=== PATIENT | male | born 1945 | race Caucasian/White ===

== ENCOUNTER 2022-03-19 14:20 | Observation (INO) | payer MEDICARE, SELFPAY ==
[2022-03-19] VITALS (19 sets, daily range): BP systolic 138–211; BP diastolic 60–126; PULSE 80–98; RESP 16–20; TEMP 36.3–36.6; O2SAT 95–99; BMI 36.1; BMI 30.7
--- NOTE | 2022-03-19 15:11 | XR_ITS ---
FINAL REPORT CLINICAL HISTORY: weak, near syncope FINDINGS: SINGLE-VIEW CHEST There is mild cardiomegaly.. The mediastinum is normal. There are mild left base opacities, favor atelectasis over pneumonia. There is no pneumothorax. IMPRESSION: Left base opacities, favor atelectasis over pneumonia. Reviewed, Interpreted and Dictated by Josue Perez III, MD Transcribed by Christin Palafox Authenticated and [facility]
--- NOTE | 2022-03-19 15:11 | CT_ITS ---
FINAL REPORT CLINICAL HISTORY: weakness, h/o 3 strokes FINDINGS: Axial images of the head were obtained without contrast. Coronal reformatted images were also obtained. This study was performed with techniques to keep radiation doses as low as reasonably achievable (ALARA). Individualized dose reduction techniques using automated exposure control or adjustment of mA and/or kV according to the patient's size were employed. There is generalized age-appropriate atrophy. Periventricular low-attenuation areas are seen consistent with mild chronic ischemic changes. There is no evidence of intracranial hemorrhage or mass. There is no evidence of acute infarct. There is no evidence of shift of the midline structures. No skull abnormality is seen on the bone window images. IMPRESSION: Atrophy and mild periventricular chronic ischemic changes. No acute intracranial abnormality identified. Reviewed, Interpreted and Dictated by Josue Perez III, MD Transcribed by Christin Palafox Authenticated and [facility]
--- NOTE | 2022-03-19 15:17 | HMH.EDGENADL ---
Discharge Plan Disposition Patient Disposition: Still a Patient Condition: Fair Clinical Impressions Clinical Impression: Near syncope, Generalized weakness, Anemia, Creatinine elevation, Leukocytosis Discharge ED Provider: Eliseo Albarran General Adult HPI <Eliseo Albarran MD - Last Filed: 03/19/22 19:56> General Chief complaint: Fall Stated complaint: fall Time Seen by Provider: 03/19/22 15:03 Mode of Arrival: EMS Source of Information: Patient Limitations: No Limitations Description of Symptoms (Recalled from ER Triage Doc. by RN): Patient reports he fell out of the chair. Denies any pain or hitting his head. Patient denies any loss of conciousness. Patient reports generalized weakness. History of Present Illness HPI narrative: Patient is brought in by ambulance. History obtained from patient and friend. He was sitting on a bench, felt presyncopal and weak and fell off of the bench. He did not injure himself. The bench was just 6 inches high. His friend states that he did not go completely unconscious, but came close. Patient remembers feeling very weak and feeling like he was going to pass out. States that he feels much better now. Currently he denies any new numbness or weakness. He is starting to get a little bit of a headache. He is not having problems with speech. He says he is not having visual problems but his friend says that when the episode happened the patient was not able to make him out visually. He states he has a history of 3 previous strokes, the last was several years ago, says his strokes have been brainstem. He has residual right-sided numbness. He is able to walk independently and drives. He is diabetic. He reports blood sugar during transport was 150s. He is on aspirin and Plavix, no other blood thinners. No chest pain or shortness of breath. Denies recent illness such as cough, fever, vomiting, diarrhea. Related Data Allergies Allergy/AdvReac Type Severity Reaction Status Date / Time No Known Allergies Allergy Verified 03/19/22 14:36 PFSH <Eliseo Albarran MD - Last Filed: 03/19/22 19:56> COUNTS INCLUDE 234 BEDS AT THE [facility] Medical History (Updated 03/19/22 @ 23:07 by Saulo Humphries DNP) Cervical spine disease Cholecystectomy planned CVA (cerebral vascular accident) Diabetes Hyperlipidemia Hypertension Surgical History (Updated 03/19/22 @ 23:05 by Saulo Humphries DNP) History of appendectomy Family History (Updated 03/19/22 @ 23:05 by Saulo Humphries DNP) Other Stroke Social History (Updated 03/19/22 @ 23:13 by Saulo Humphries DNP) Smoking Status: Never smoker alcohol intake: never current occupational status: unemployed Travel in the last 8 weeks: None <Eliseo Albarran MD - Last Filed: 03/19/22 19:56> ROS Obtained: Yes All systems reviewed & no additional complaints except as documented Constitutional Constitutional: Denies fever(s), Reports headache(s) and Reports weakness Eyes Eyes: Reports as per HPI ENT Ears, Nose, Mouth, and Throat: Reports headache(s), Denies nasal discharge and Denies sore throat Cardiovascular Cardiovascular: Denies chest pain and Reports syncope (Near syncope) Respiratory Respiratory: Denies shortness of breath and Denies cough Gastrointestinal Gastrointestingal: Denies abdominal pain, constipation, diarrhea or vomiting Genitourinary Male Genitourinary: Denies difficulty urinating and Denies flank pain Musculoskeletal Musculoskeletal: Reports numbness (Chronic right-sided numbness) Neurologic Neurologic: Denies abnormal speech, Denies focal weakness, Reports headache(s), Reports numbness (Chronic right-sided numbness), Reports syncope (Near syncope) and Reports weakness Physical Exam <Eliseo Albarran MD - Last Filed: 03/19/22 19:56> General General appearance: alert and in no apparent distress Head Head exam: atraumatic and normocephalic Eye Eye exam: Present normal appearance and EOMI ENT ENT exam: Present mucous membranes moist Neck Neck exam
--- NOTE | 2022-03-19 15:24 | ECG_ITS ---
APPROVED REPORT Exam: Resting ECG HR:85 bpm ECG Measurements Heart Rate 85 AXES TX 216 P 71 QRSd 77 QRS 65 QT 366 T 77 QTc 408 Conclusion SINUS RHYTHM WITH FIRST DEGREE AV BLOCK LOW QRS VOLTAGE IN PRECORDIAL LEADS [QRS DEFLECTION < 1.0 mV IN CHEST LEADS] ABNORMAL ECG UNCONFIRMED REPORT Electronically signed by : Deonte Cornell MD 03/20/2022 13:28:25
[2022-03-19 16:06] LABS: Basophils # 0.1 K/mm3 (0-0.2); Basophils % 0.6 % (0.1-2.0); Eosinophils # 0.2 K/mm3 (0.0-0.4); Eosinophils % 1.2 % (0.1-12.0); Hematocrit 29.6 % (42.0-52.0); Hemoglobin 9.2 g/dL (14.1-18.0); Lymphocytes # 2.8 K/mm3 (0.7-4.5); Lymphocytes % 20.9 % (10-50); Mean Corpuscular HGB Conc 31.2 g/dL (31.8-35.4); Mean Corpuscular Hemoglobin 24.6 pg (27.0-31.2); Mean Platelet Volume 8.3 fl (7.4-10.4); Monocytes # 0.7 K/mm3 (0.1-1.0); Monocytes % 5.4 % (1.7-9.3); Neutrophils # 9.6 K/mm3 (1.8-7.8); Neutrophils % 71.9 % (37.0-80.0); Platelet Count 456 K/mm3 (142-424); Red Blood Count 3.75 M/mm3 (4.60-6.20); Red Cell Distribution Width 15.7 % (11.5-17.5); White Blood Count 13.3 K/mm3 (4.8-10.8)
[2022-03-19 16:17] LABS: Chloride 109 mmol/L (98-107); Sodium 141 mmol/L (136-145)
[2022-03-19 16:18] LABS: Coronavirus 19, PCR Not Detected (NotDetected); Influenza A, PCR Not Detected (NotDetected); Influenza B, PCR Not Detected (NotDetected)
[2022-03-19 16:19] LABS: Blood Urea Nitrogen 29 mg/dl (9-20); Creatinine Clearance Estimated 49 mL/min (50-200); Estimated Glomerular Filt Rate 33 ml/min (>60); GFR (African American) 39 ML/MIN (>60)
[2022-03-19 16:20] LABS: Alanine Aminotransferase 30 U/L (12-78); Albumin Level 3.6 g/dl (3.5-5.0); Albumin/Globulin Ratio 1.2 (1.1-1.8); Alkaline Phosphatase 77 U/L (38-126); Aspartate Amino Transferase 46 U/L (17-59); Bilirubin,Total 0.3 mg/dl (0.2-1.3); Calcium 9.1 mg/dl (8.4-10.2); Carbon Dioxide 25 mmol/L (22.0-30.0); Glucose 148 mg/dl (74-100); Total Protein,Serum 6.6 g/dl (6.3-8.2)
[2022-03-19 16:34] LABS: Troponin I < 0.01 ng/ml (0.00-0.034)
[2022-03-19 16:55] LABS: Occult Blood,Stool Negative (Negative)
[2022-03-19 17:49] LABS: Microscopic, Urine URINE MICROSCOPIC (MICROSCOPIC)
--- NOTE | 2022-03-19 17:53 | PC.NURSE ---
[facility], waiting for hospitalist to call back.
[2022-03-19 17:57] LABS: Appearance,Urine CLEAR (Clear); Bilirubin,Urine Negative (Negative); Blood, Urine Negative (Negative); Color,Urine YELLOW (Yellow); Glucose,Urine (UA) Negative (Negative); Ketones,Urine Negative (Negative); Leukocyte Esterase,Urine Negative (Negative); Nitrate,Urine Negative (Negative); Protein,Urine TRACE (Negative); Specific Gravity, Urine >= 1.030 (1.005-1.030); Urobilinogen,Urine 0.2 EU/dl (0.2)
[2022-03-19 18:11] LABS: Bacteria,Urine 2+ /lpf
--- NOTE | 2022-03-19 18:53 | PC.NURSE ---
Called [facility] again about hospitalist calling, she advised he was going to call as soon as he could, that he was real busy.
[2022-03-19 19:32] LABS: Troponin I 0.02 ng/ml (0.00-0.034)
--- NOTE | 2022-03-19 19:53 | PC.NURSE ---
Rechecked pt condition. No needs or complaints voiced at this time.
--- NOTE | 2022-03-19 20:29 | PC.NURSE ---
Called [facility] back. They advised that Dr. Martinez was aware that he needed to call us back and that he was still busy. They also advised that had no beds available, and there are 7 people on the wait list ahead of him.
--- NOTE | 2022-03-19 20:31 | PC.NURSE ---
Dr. Mercedes at speaking with pt/family at this time.
[2022-03-19 20:43] LABS: POC Glucose,Bedside 110 (70-110)
--- NOTE | 2022-03-19 20:48 | PC.NURSE ---
Dr. Mercedes speaking with Dr. Fabian at [facility]
--- NOTE | 2022-03-19 20:56 | CT_ITS ---
PROCEDURE INFORMATION: Exam: CTA Neck With Contrast Exam date and time: 03/19/2022 9:03 PM Age: 76 years old Clinical indication: Other: R/O stroke TECHNIQUE: Imaging protocol: Computed tomographic angiography of the neck with contrast. 3D rendering (Not supervised by radiologist): MIP and/or 3D reconstructed images were created by the technologist. Radiation optimization: All CT scans at this facility use at least one of these dose optimization techniques: automated exposure control; mA and/or kV adjustment per patient size (includes targeted exams where dose is matched to clinical indication); or iterative reconstruction. Contrast material: ISOVUE; Contrast volume: 100 ml; Contrast route: INTRAVENOUS (IV); COMPARISON: CT HEAD/BRAIN WO CON 03/19/2022 3:24 PM FINDINGS: Right common carotid artery: Atherosclerosis and mild stenosis of the distal right common carotid artery. Right internal carotid artery: Approximately 50% stenosis of the proximal right internal carotid artery, with atherosclerosis and noncalcified plaque. Right external carotid artery: Mild stenosis of the proximal right external carotid artery. Atherosclerosis. Left common carotid artery: No significant stenosis. No dissection or occlusion. Left internal carotid artery: Less than 50% stenoses of the proximal and distal left internal carotid artery. Atherosclerosis. Left external carotid artery: No occlusion or significant stenosis. Right vertebral artery: Mild hypoplasia of the right vertebral artery, without extracranial occlusion. Left vertebral artery: A dominant left vertebral artery is visualized. Mild decreased enhancement/flow is seen within the V1 segment of the left vertebral artery, although this can be contributed by artifact. Right subclavian artery: Artifact limits evaluation of the right subclavian artery. Mild stenosis of the proximal right subclavian artery. Atherosclerosis. Left subclavian artery: Mild stenosis of the left subclavian artery. Aorta: Atherosclerosis of the aortic arch. Artifact limits evaluation of the ascending aorta. Pharynx: Effacement of the right pyriform sinus. Soft tissues: No significant soft tissue swelling. Bones/joints: Straightening of the lordotic curvature of the cervical spine. Degenerative changes are identified involving the cervical and upper thoracic spine. Varying degrees of spinal canal stenosis and neural foraminal narrowing at multiple cervical levels. Moderate to severe spinal canal stenosis at C3-C4. Lungs: Mild dependent atelectatic change within the lungs. IMPRESSION: 1. Mild stenosis of the distal right common carotid artery. 2. Approximately 50% stenosis of the proximal right internal carotid artery. 3. Mild stenosis of the proximal right external carotid artery. 4. Less than 50% stenoses of the proximal and distal left internal carotid artery. 5. Mild bilateral subclavian artery stenoses. 6. A dominant left vertebral artery is visualized. Mild decreased enhancement/flow is seen within the V1 segment of the left vertebral artery, although this can be contributed by artifact. 7. Degenerative changes are identified involving the cervical and upper thoracic spine. Varying degrees of spinal canal stenosis and neural foraminal narrowing at multiple cervical levels. Moderate to severe spinal canal stenosis at C3-C4. These findings can be further evaluated with a cervical MRI. 8. Additional findings described above. REFERENCES: NASCET CRITERIA. The degree of stenosis in the cervical segment of the internal carotid artery is based on NASCET criteria. Normal is no stenosis. Mild is less than 50% s
--- NOTE | 2022-03-19 20:56 | CT_ITS ---
PROCEDURE INFORMATION: Exam: CTA Head With Contrast, Arteriography Exam date and time: 03/19/2022 9:03 PM Age: 76 years old Clinical indication: Stroke-like symptoms; RT upper extremity weakness; Additional info: R/O stroke TECHNIQUE: Imaging protocol: Computed tomographic angiography of the head with contrast. Exam focused on the arteries. 3D rendering (Not supervised by radiologist): MIP and/or 3D reconstructed images were created by the technologist. Radiation optimization: All CT scans at this facility use at least one of these dose optimization techniques: automated exposure control; mA and/or kV adjustment per patient size (includes targeted exams where dose is matched to clinical indication); or iterative reconstruction. Contrast material: ISOVUE; Contrast volume: 100 ml; Contrast route: INTRAVENOUS (IV); COMPARISON: CT HEAD/BRAIN WO CON 03/19/2022 3:24 PM FINDINGS: ANTERIOR CIRCULATION: Right internal carotid artery: Atherosclerosis of the right internal carotid artery, with mild stenoses. No aneurysm. Right middle cerebral artery: No occlusion or significant stenosis. No aneurysm. Right anterior cerebral artery: Stenosis of the A1 segment of the right MICA proximally. No aneurysm. Left internal carotid artery: Atherosclerosis of the left internal carotid artery, with mild and moderate stenoses. No aneurysm. Left middle cerebral artery: No occlusion or significant stenosis. No aneurysm. Left anterior cerebral artery: Stenosis of the A1 segment of the left anterior cerebral artery proximally. No aneurysm. 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 Left vertebral artery: Mild stenosis of the V4 segment the left vertebral artery. A dominant left vertebral artery is identified. Atherosclerosis. Basilar artery: No occlusion or significant stenosis. No aneurysm. Right posterior cerebral artery: The right [employer] TECH[employer]ICIAN is small in caliber, with stenoses up to severe in degree. No aneurysm. Left posterior cerebral artery: Stenoses are visualized of the left [employer] SC[employer] TECHNICIAN, which are up to severe in degree. The left [employer] TECHNICIAN is small in caliber. No aneurysm. Brain: No definite mass, mass effect, or midline shift. Refer to the head CT report from the same day. Cerebral ventricles: There is mild prominence of the ventricles and sulci, compatible with atrophy. Orbital cavities: Bilateral orbital lens implants. Bones/joints: Hyperostosis frontalis interna. Soft tissues: Unremarkable. IMPRESSION: 1. No large vessel arterial occlusion on this CTA head. 2. 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 3. Mild stenosis of the V4 segment the left vertebral artery. A dominant left vertebral artery is identified. 4. Stenoses are visualized of the left [employer] SC[employer] TECHNICIAN, which are up to severe in degree. The left [employer] SC[employer] TECHNICIAN is small in caliber. 5. The right [employer] TECHNICIAN is small in caliber, with stenoses up to severe in degree. 6. Bilateral MICA stenoses. 7. Atherosclerosis of the internal carotid arteries, with stenoses bilaterally. 8. Additional findings described above.
--- NOTE | 2022-03-19 21:08 | PC.NURSE ---
Pt gone to RAD for CT
--- NOTE | 2022-03-19 21:17 | PC.NURSE ---
pt returned from ct
--- NOTE | 2022-03-19 21:30 | PC.NURSE ---
Repeat trop drawn and sent to lab
--- NOTE | 2022-03-19 21:43 | PC.NURSE ---
Dr. Mercedes speaking with Dr. Fabian at [facility]
[2022-03-19 22:10] LABS: Troponin I < 0.01 ng/ml (0.00-0.034)
--- NOTE | 2022-03-19 22:26 | PC.NURSE ---
Dr. Mercedes updated pt/family of plans to admit
--- NOTE | 2022-03-19 22:29 | PC.NURSE ---
Family Friend, Mihai, sherry contact number [phone]
--- NOTE | 2022-03-19 22:40 | PC.NURSE ---
Pt given urinal
--- NOTE | 2022-03-19 22:48 | PC.NURSE ---
[facility]EREAL DISEASE CONTROL HEAD speaking with pt at this time
--- NOTE | 2022-03-19 22:56 | EXP.HP ---
History of Present Illness *Admission Date: 03/19/22 *Reason for visit:: Near Syncope *History of present illness: Mr. Valadez is a 76-year-old male with a past medical history that is positive for history of CVA, DM, HTN, HL. He presents to [facility] due to a near-syncopal episode that occurred earlier in the day. He reports that he was on a bench with a friend when he started feeling dizzing and feeling like he was going to pass out. He denies losing consciousness. He was brought into the ER for evaluation. In the ER, the patient had a CT of the head without contrast that showed no acute intracranial abnormalities. 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 He underwent a CT Angiogram of the neck that showed 50% stenosis of the proximatl right internal carotid artery and less than 50% stenosis of the proximal and distal left internal carotid artery. The ER Physcian spoke with [facility] and they recommended obtaining an MRI of the head and risk stratification, but no need for transfer. [facility] was also contacted, but there was no bed available at the facility. Also important to note is the patient has a creatinine at 2.00. He denies a history of CKD. K was at 5.0. In the ER he received fluids. The patient will be admitted with initial impression: Near Syncope. Further diagnostics will be obtained. The plan of care was discussed with the patient in length and detail at bedside in the ER prior to admission. The patient verbalized understanding and agreement with the plan of care. [facility] Medical History (Updated 03/20/22 @ 14:01 by Harrison Mandujano MD) Appendicitis Cervical spine disease Cholecystectomy planned CVA (cerebral vascular accident) Degenerative disc disease Diabetes Diabetes mellitus, type 2 History of cataract Hyperlipidemia Hypertension Pneumonia Surgical History H/O neck surgery H/O rotator cuff surgery History of appendectomy Previous back surgery Family History (Updated 03/20/22 @ 01:53 by Isabella See RN) Family history of hypertension Family history of myocardial infarction Stroke Social History (Updated 03/20/22 @ 01:54 by Isabella See RN) Smoking Status: Never smoker alcohol intake: never current occupational status: unemployed Travel in the last 8 weeks: None Review of Systems Review of Systems Review of systems:: pertinent systems reviewed and negative unless documented below Constitutional Constitutional: Reports headache(s) and Reports weakness Eyes Eyes: Reports system reviewed and no additional complaints, except as documented ENT Ears, Nose, Mouth, and Throat: Reports system reviewed and no additional complaints, except as documented and Reports headache(s) *Cardiovascular Cardiovascular: Reports system reviewed and no additional complaints, except as documented and Reports syncope (Near syncope) *Respiratory Respiratory: Reports system reviewed and no additional complaints, except as documented *Gastrointestinal Gastrointestinal: Reports system reviewed and no additional complaints, except as documented *Genitourinary Genitourinary: Reports system reviewed and no additional complaints, except as documented *Musculoskeletal Musculoskeletal: Reports system reviewed and no additional complaints, except as documented and Reports numbness (Chronic right-sided numbness) Integumentary/Breasts Skin/Breast: Reports system reviewed and no additional complaints, except as documented *Neurologic Neurologic: Reports headache(s), Reports numbness (Chronic right-sided numbness), Reports syncope (Near syncope) and Reports weakness Psychiatric Psychiatric: Reports system reviewed and no additional complaints, except as documented Endocrine Endocrine: Reports system reviewed and no additional complaints, except as documented Hematolo
[2022-03-19 23:13] LABS: Creatinine,Urine Random 205 mg/dL (Not Estab.)
[2022-03-20] VITALS: BP 160/91; PULSE 80; PULSE 89; RESP 20; TEMP 36.6; O2SAT 97
--- NOTE | 2022-03-20 00:16 | PC.NURSE ---
PT ARRIVED TO FLOOR VIA STRETCHER @ [id number].
--- NOTE | 2022-03-20 01:45 | PC.NURSE ---
Received report from Kelly See RN
[2022-03-20 04:00] VITALS: BP 142/75; PULSE 80; PULSE 85; RESP 18; TEMP 36.6; O2SAT 94
[2022-03-20 04:29] VITALS: BMI 30.7
--- NOTE | 2022-03-20 05:31 | PC.NURSE ---
MARTINEZ CALLED FROM [facility], NO BED AVAILABLE AT THIS TIME, STILL ON THE WAITING LIST.
--- NOTE | 2022-03-20 05:33 | PC.NURSE ---
Pt has rested intermittently since this RN assumed care. He reports it's hard to sleep in a hospital . Has no complaints other than reports of weakness. States he does not feel like he could get up out of the bed without significant assistance. Denies soa or cp. LS cta. Remains on room air. NSR on telemetry. No acute distress noted, will continue to monitor.
[2022-03-20 06:56] LABS: POC Glucose,Bedside 119 (70-110)
--- NOTE | 2022-03-20 07:15 | PC.NURSE ---
PT here to evaluate patient
--- NOTE | 2022-03-20 07:30 | HMH.PTEV ---
Physical Therapy Evaluation Rehab PT IP Evaluation Start: 03/19/22 23:14 Freq: ONCE Status: Active Protocol: Document 03/20/22 07:23 YAZAN (Rec: 03/20/22 07:29 YAZAN [id number]) Subjective/History History History This is the initial IP PT evaluation for Geoff Valadez . Pt is a 76 y/o male admitted to [facility] for TIA. 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 Pt reports all of a sudden he felt severely dizzy and almost passed out . Pt reports no LOC Subjective Subjective Pt reports he feels weak in my legs - pt also reports he is in the process of getting an electric scooter from medicare Rehab PT IP Eval Objective Appearance Patient Behavior Appropriate,Aggressive Patient Orientation Place,Name,Birthday,Year, Situation Difficulty following instructions none Speech Pattern Appropriate Ambulation Patient Able to Ambulate Yes Ambulation Observation IP General Gait Pattern Observation Wide Based Gait,Ataxic Gait, Decrease Stride Lngth (R), Decrease Stride Lngth (L) Ambulation Distance (feet) 30 Ambulation Assistive Device None Ambulation Ability Contact Guard/Hand Hold Balance Ability to Arise Able, uses arms to help Sitting Balance Steady, safe Standing Balance Steady, wide stance Dynamic Sitting Balance Ability Good Dynamic Standing Balance Ability Poor Transfers Bed Transfer Ability Independent Chair Transfer Ability Independent Sit to Stand Bed Transfer Ability Contact Guard/Hand Hold Sit to Stand Chair Transfer Ability Contact Guard/Hand Hold Rehab PT IP prob,goals,plan Problems Date of Evaluation: 03/20/22 PT IP Problems Transfers,Gait,Balance,Self care,Safety Rehab Potential Rehab Potential Fair Equipment Needs Assistive Devices None / NA,Straight Cane, Rolling / Wheeled Walker Plan PT Intervention Plan Transfers,Gait,Balance,Self care,Safety,Therapeutic Exercise PT Plan Frequency BID Duration
--- NOTE | 2022-03-20 07:48 | HMH.PHAINT1 ---
Pharmacy Intervention Comments: MEDICATION RECONCILIATION COMPLETED ON PATIENT USING EXTERNAL FILL HISTORY FROM PHARMACY. -HELIO CHOUDHURY, CAROLINED
[2022-03-20 07:49] LABS: Chol/HDL Ratio 6.1 (1-3.5); Cholesterol 129 mg/dl (140-200); HDL Cholesterol 21 mg/dl (40-60); Triglycerides 168 mg/dl (30-150); VLDL Cholesterol 34 mg/dL (0-40)
[2022-03-20 08:00] VITALS: BP 160/74; PULSE 89; RESP 20; TEMP 36.4; O2SAT 96
[2022-03-20 08:00] LABS: Direct LDL Cholesterol 71.66 mg/dL (100-129)
[2022-03-20 09:21] LABS: Basophils # 0.1 K/mm3 (0-0.2); Basophils % 0.8 % (0.1-2.0); Eosinophils # 0.3 K/mm3 (0.0-0.4); Eosinophils % 3.3 % (0.1-12.0); Hematocrit 27.3 % (42.0-52.0); Hemoglobin 8.6 g/dL (14.1-18.0); Lymphocytes % 32.8 % (10-50); Mean Corpuscular HGB Conc 31.6 g/dL (31.8-35.4); Mean Corpuscular Hemoglobin 24.8 pg (27.0-31.2); Mean Corpuscular Volume 78.4 fl (80-94); Mean Platelet Volume 8.3 fl (7.4-10.4); Monocytes # 0.7 K/mm3 (0.1-1.0); Monocytes % 7.6 % (1.7-9.3); Neutrophils # 5.1 K/mm3 (1.8-7.8); Neutrophils % 55.3 % (37.0-80.0); Platelet Count 383 K/mm3 (142-424); Red Blood Count 3.48 M/mm3 (4.60-6.20); Red Cell Distribution Width 15.8 % (11.5-17.5); White Blood Count 9.3 K/mm3 (4.8-10.8)
[2022-03-20 09:35] LABS: Alanine Aminotransferase 29 U/L (12-78); Albumin Level 3.3 g/dl (3.5-5.0); Albumin/Globulin Ratio 1.2 (1.1-1.8); Alkaline Phosphatase 73 U/L (38-126); Anion Gap 10.6 mEq/L (5-15); Aspartate Amino Transferase 38 U/L (17-59); Bilirubin,Total 0.3 mg/dl (0.2-1.3); Blood Urea Nitrogen 24 mg/dl (9-20); Calcium 8.7 mg/dl (8.4-10.2); Carbon Dioxide 22 mmol/L (22.0-30.0); Chloride 107 mmol/L (98-107); Creatinine Clearance Estimated 51 mL/min (50-200); Estimated Glomerular Filt Rate 42 ml/min (>60); GFR (African American) 51 ML/MIN (>60); Globulin 2.8 g/dL (1.3-3.2); Glucose 172 mg/dl (74-100); Potassium 4.6 mmoL/L (3.5-5.1); Sodium 135 mmol/L (136-145); Total Protein,Serum 6.1 g/dl (6.3-8.2)
--- NOTE | 2022-03-20 10:25 | SW/DCPLANNER ---
Addendum entered by Chantelle Livingston 03/20/22 12:50: Amina alcantara/ Meghana TAVAREZ stated that services will begin 03/22/22. Original Note: PT has recommended home health services for this patient at time of discharge. I spoke with patient regarding plans once medically stable: plans to return home and his son to come live with him for a couple weeks. Patient is agreeable to home health services at time of discharge. Due to patient residing in [place] patient information/order will be faxed to [facility]. Patient could potentially discharge later today or tomorrow.
[2022-03-20 10:47] VITALS: BP 145/72
--- NOTE | 2022-03-20 13:54 | EXP.DC.SUM ---
General Admission date:: 03/19/22 Discharge date: 03/20/22 HPI HPI HPI: Mr. Valadez is a 76-year-old male with a past medical history that is positive for history of CVA, DM, HTN, HL. He presents to [facility] due to a near-syncopal episode that occurred earlier in the day. He reports that he was on a bench with a friend when he started feeling dizzing and feeling like he was going to pass out. He denies losing consciousness. He was brought into the ER for evaluation. In the ER, the patient had a CT of the head without contrast that showed no acute intracranial abnormalities. 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 He underwent a CT Angiogram of the neck that showed 50% stenosis of the proximatl right internal carotid artery and less than 50% stenosis of the proximal and distal left internal carotid artery. The ER Physcian spoke with [facility] and they recommended obtaining an MRI of the head and risk stratification, but no need for transfer. [facility] was also contacted, but there was no bed available at the facility. Also important to note is the patient has a creatinine at 2.00. He denies a history of CKD. K was at 5.0. In the ER he received fluids. The patient will be admitted with initial impression: Near Syncope. Further diagnostics will be obtained. The plan of care was discussed with the patient in length and detail at bedside in the ER prior to admission. The patient verbalized understanding and agreement with the plan of care. Hospital Course Hospital Course Hospital Course: 76-year-old male with history of prior CVA who presented to [facility] ER with acute onset of near syncope associated with dizziness and weakness. CTA/CT head with no vessel occlusion or acute stroke findings. [facility] contacted, recommended MRI head: Not performed due to return to baseline function: defer to outpatient setting. No acute interventions. Continued DAPT and monitored overight. Returned to baseline level of function. Of note, Cr 2 on admission, improved at time of DC to 1.6. Stable for DC home health PT/OT. Problems addressed as follows: Near Syncope vs TIA - on admission CT head, CTA head, CT angiogram neck reviewed. No acute findings or occlusions. ER Physician spoke with [facility], no acute intervention needed, risk stratification. Already on DAPT. Returned to baseline with fluids and monitoring. Plan to continue Plavix, Aspirin, Statin. Neuro checks with resolution of deficits. PT/OT consulted, recommend Home with HH. Ambulating with minimal assistance >100ft. Rehydrated overnight with improvement in OSMANI/Cr. Suspect episode was related to dehydration vs TIA. OSMANI - Denies a history of CKD. Cr 2.0 on admission, improving to 1.6 at discharge. Concern for hypovolemia on admission. Continue iv fluids during admission. Diabetes: SSI during admission. Hypertension: stable during admission, continued home meds. Hyperlipidema: continued home statin Recommend close follow-up with PCP and Neurologist. Needs follow-up of carotid stenosis (</= 50% Rt. Carotid). DC home with Son. HH to see patient in 2 days. Exam Data for Last 24 hours Vital signs and Labs for Last 24 Hours: Temp Pulse Resp BP Pulse Ox 97.6 F 89 20 145/72 H 96 03/20/22 08:00 03/20/22 08:00 03/20/22 08:00 03/20/22 10:47 03/20/22 08:00 Laboratory Results - last 24 hr 03/19/22 15:57: WBC 13.3 H, RBC 3.75 L, Hgb 9.2 L, Hct 29.6 L, MCV 79.0 L, MCH 24.6 L, MCHC 31.2 L, RDW 15.7, Plt Count 456 H, MPV 8.3, Neut % (Auto) 71.9, Lymph % (Auto) 20.9, Milam % (Auto) 5.4, Eos % (Auto) 1.2, Baso % (Auto) 0.6, Neut # (Auto) 9.6 H, Lymph # (Auto) 2.8, Milam # (Auto) 0.7, Eos # (Auto) 0.2, Baso # (Auto) 0.1 03/19/22 15:57: Sodium 141, Potassium 5.0, Chloride 109 H, Carbon Dioxide 25, Anion Gap 12.0, BUN 29 H, Creatinine 2.00 H, Estimated Creat Clear 49, Es
--- NOTE | 2022-03-20 14:52 | HMH.PHAINT1 ---
Pharmacy Intervention Comments: DISCHARGE MEDICATION COUNSELING PROVIDED. DISCUSSED THAT THERE WERE NO CHANGES TO CURRENT REGIMEN. PATIENT VERBALIZED NO QUESTIONS AT THIS TIME.
[2022-03-20 18:21] LABS: POC Glucose,Bedside 134 (70-110)
[2022-03-21 09:12] LABS: Sodium, Urine 97 mmol/L (Not Estab.)
--- NOTE | 2022-03-23 13:27 | CARE MANAGER ---
Patient states that he is doing better. He is aware of follow up appointment. He did not have new medications and denies questions or concerns. ZAYDA Harmon
== END 2022-03-20 15:00 | disposition home health service (06) ==
LOC: ER 19:56 → 2ND 23:18
PROVIDERS: Nurse Practitioner Family; Admitting Provider Internal Medicine Adolescent Medicine; Emergency Provider Emergency Medicine; PCP Internal Medicine; Visit Provider Internal Medicine Adolescent Medicine
DX: R55 Syncope and collapse (principal); N17.9 Acute kidney failure, unspecified; E11.9 Type 2 diabetes mellitus without complications; I10 Essential (primary) hypertension; E78.5 Hyperlipidemia, unspecified; Z79.4 Long term (current) use of insulin; Z79.02 Long term (current) use of antithrombotics/antiplatelets; W07.XXXA Fall from chair, initial encounter; I69.351 Hemiplegia and hemiparesis following cerebral infarction affecting right dominant side; N39.0 Urinary tract infection, site not specified
CPT/HCPCS: G0378; 36415; 70450; 70496; 70498; 71045; 80053; 80061; 81001; 82272; 82570; 82962; 83605; 84300; 84484; 85025; 87040; 87086; 93005; 97116; 97162; 99285; C9803; G0328; Q9967; U0003; U0005

== ENCOUNTER 2024-02-24 09:49 | Day surgery (SDC) | payer MEDICARE, SELFPAY ==
[2024-02-23 11:27] VITALS: BMI 20.7
[2024-02-24] MEDS: LACTATED RINGERS 1000ML 1,000 ML 25 ML IV (10:30)
[2024-02-24 10:34] VITALS: BP 187/88; PULSE 73; RESP 18; TEMP 36.6; O2SAT 97
--- NOTE | 2024-02-24 10:38 | EXP.ANES.CKL ---
[facility] Disclaimer: The information contained in this section may have been updated after the patient was seen, as this information can be updated by other users. Medical History Stroke Eczema Pneumonia Degenerative disc disease Appendicitis Diabetes mellitus, type 2 History of cataract Cervical spine disease Cholecystectomy planned Hyperlipidemia Hypertension Diabetes CVA (cerebral vascular accident) Surgical History History of carpal tunnel surgery Hx of cataract surgery H/O rotator cuff surgery Previous back surgery H/O neck surgery History of appendectomy Family History Other Family history of hypertension Family history of myocardial infarction Stroke Social History Smoking Status: Former smoker alcohol intake: never substance use type: denies use current occupational status: retired Travel in the last 8 weeks: None [facility] Anesthesia Checklist Patient Identification Patient Identification: Arm Band and Verbal (Name & ) Structural Data Admitted From: Home Planned Operative Procedure/s: EGD with Botox Consent for Planned Operative Procedure(s) Verified: Yes Verified Documents: Surgical Consent and History and Physical NPO Status Verified Time NPO: 00:00 Additional verifications Anesthesia Reactions: No Airway Assessment Mallampati Score:: Class II C-Spine Mobility Assessed: Yes TMJ Mobility Assessed: Yes Dentition: Dentures-poor fitting (Removed) Neurological Assessment Level of Consciousness: Awake Hx Seizures: No Numbness or tingling in extremities: No Anesthesia Plan Anesthesia Risk discussed: Yes Anesthesia Plan: Verified ASA Class: III Anesthesia Type: MAC
[2024-02-24 10:47] LABS: POC Glucose,Bedside 114 (70-110)
[2024-02-24 11:59] VITALS: O2SAT 99
--- NOTE | 2024-02-24 12:10 | P.PCN_ITS ---
[facility] Procedure Note Date: 02/24/24 Time: 12:11 Procedure Note:: Upper Endoscopy Procedure Report: Esophagogastroduodenoscopy with cold biopsies, TTS balloon dilation and submucosal injection Endoscopost: Josue Haskins II, MD Referring Physician: Deonte Latham MD Date of Procedure: February 24, 2024 Equipment: Olympus GIF 190 standard upper endoscope Sedation: MAC sedation Indications: Mr. Valadez is a 78-year-old gentleman with ongoing dysphagia. He does have a history of prior achalasia but he also has had stricturing at the GE junction and has had multiple esophageal dilations. In the past he is also had Botox injections into the lower esophageal sphincter. He does have a prior CVA and is on Plavix. His dysphagia is recently to both solids and liquids. He does get some chest discomfort when swallowing his nighttime medication tablets. He did have a larger gastric hyperplastic polyp removed at [facility]. The patient does have occasional constipation and uses MiraLAX plus Konsyl as needed. He is also on domperidone. He gets some reflux symptoms. Procedure: Prior to the procedure, a history and physical exam was performed, and patient's medications and allergies were reviewed. The risks, benefits and alternatives of the sedation and procedure were discussed with the patient. All questions were answered and informed consent was obtained. The patient was brought to the procedure room. Patient identification and proposed procedure were verified by the physician and the nurse. The patient was placed in a left lateral decubitus position and the scope was passed under direct vision. Throughout the procedure, the patient's blood pressure, pulse, and oxygen saturations were monitored continuously. The upper GI endoscopy was accomplished without difficulty. The patient tolerated the procedure well. Findings: The scope was passed directly into the upper esophagus and advanced to the third portion of the duodenum. The post bulbar duodenum and duodenal bulb were normal with normal mucosa and conniventes. The scope was withdrawn through a normal duodenal bulb and pylorus into the stomach. There was some bile reflux with linear reactive gastropathy. There was no evidence of any remaining antral polyp. The body and fundus were essentially normal and there was no hiatal hernia. The scope was then withdrawn into the esophagus. There was a distal esophageal stricture that was initially 5 mm in diameter and push through with the scope. This was very gently dilated up to 18 mm with a TTS hydrostatic balloon. There was fracturing of the fibrous ring. Biopsies were taken at the GE junction. He did have some failure of relaxation of the LES and Botox was utilized and injected in 4 aliquots (80 IU total) circumferentially into the LES. There was moderate esophageal dysmotility. There was no evidence of reflux esophagitis or Monroy's. The remainder of the esophageal mucosa was normal. Impression: 1. Distal esophageal stricture dilated to 18 mm (from 5 mm original diameter) 2. Failure of relaxation of LES in setting of prior achalasia status post Botox injection (80 IU in 4 aliquots) 3. Bile reflux with moderate linear reactive gastropathy Plan: I will discuss the findings and treatment with the patient and family. I will follow-up the biopsies. The patient should derive clinical improvement of his dysphagia. He may require repeated dilation. I do not feel that the Botox is warranted in the future because it can lead to some submucosal fibrosis.
[2024-02-24] MEDS: BOTULINUM TOXIN TYPE A 100 UNIT/ML IM (12:20)
[2024-02-24 12:27] VITALS: BP 159/74; PULSE 83; RESP 16; TEMP 36.1; O2SAT 94
[2024-02-24 12:37] VITALS: BP 175/74; PULSE 74; RESP 16; O2SAT 96
[2024-02-24 12:47] VITALS: BP 159/75; PULSE 88; RESP 16; O2SAT 95
[2024-02-24 12:52] VITALS: BP 141/69; PULSE 87; RESP 16; O2SAT 96
== END 2024-02-24 13:10 | disposition home or self-care (01) ==
PROVIDERS: PCP Internal Medicine; Visit Provider Internal Medicine Gastroenterology
PROC: 3E0G8TZ Introduction of Destructive Agent into Upper GI, Via Natural or Artificial Opening Endoscopic (ICD-10-PCS; CPT 43236; principal; 2024-02-24 11:30)
DX: R13.10 Dysphagia, unspecified (principal); K31.9 Disease of stomach and duodenum, unspecified; K21.9 Gastro-esophageal reflux disease without esophagitis; E11.8 Type 2 diabetes mellitus with unspecified complications; Z79.4 Long term (current) use of insulin; K22.0 Achalasia of cardia
CPT/HCPCS: 43236; 43239; 43249; 82962; 88305; C1726; J0585; J7120

== ENCOUNTER 2025-03-12 10:48 | Day surgery (SDC) | payer MEDICARE, SELFPAY ==
[2025-03-08 13:07] VITALS: BMI 35.2
--- NOTE | 2025-03-08 15:00 | EXP.HP ---
History of Present Illness *Admission Date: 03/12/25 *History of present illness: Mr. Valadez is an 79-year-old gentleman who is here for diagnostic EGD. 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 He also has a prior history of achalasia but this was fully treated and his endoscopic findings are not consistent with achalasia but rather with tight lower esophageal sphincter. However, he has responded to Botox injection and esophageal dilation and his last EGD in February 2024 showed a 5 mm diameter distal esophageal chronic stricture and this was dilated up to 18 mm. Botox was injected into the LES. The patient does state that he had more durable improvement of his dysphagia after this dilation. I did indicate that the Botox can eventually lead to some submucosal fibrosis and scar tissue and that I did not feel that that was going to be a viable treatment. The patient also has had some obstipation and takes of MiraLAX plus Konsyl fairly routinely. He states that his bowel function is greatly improved. He also takes Creon digestive enzyme and feels like this has helped with his gassiness and bloating. He also takes pantoprazole and prokinetic domperidone. Today he is back and states that he is starting to have recurrence of the dysphagia and notes regurgitation of content especially in the evenings. Prior to his last EGD with dilation, he was experiencing aspiration and had been hospitalized with aspiration pneumonia. He has not had that since his EGD last year. He is concerned about the possibility of recurrent aspiration because of the food regurgitation.. The examination is deemed medically necessary for diagnostic EGD. The patient has been seen, interviewed and examined prior to the procedure by both myself and the anesthesia provider. [facility] Disclaimer: The information contained in this section may have been updated after the patient was seen, as this information can be updated by other users. Medical History Stroke Eczema Pneumonia Degenerative disc disease Appendicitis Diabetes mellitus, type 2 History of cataract Cervical spine disease Cholecystectomy planned Hyperlipidemia Hypertension Diabetes CVA (cerebral vascular accident) Surgical History History of carpal tunnel surgery Hx of cataract surgery H/O rotator cuff surgery Previous back surgery H/O neck surgery History of appendectomy Family History Other Family history of hypertension Family history of myocardial infarction Stroke Social History Smoking Status: Former smoker alcohol intake: never substance use type: denies use current occupational status: retired Travel in the last 8 weeks?: None Have you lived/traveled outside US in past 30 days?: No Contact w/someone who lives/traveled outside US past 30 days?: No Exposure to someone with infectious disease in past 14 days?: No Do you have a fever (greater than 100.4 F or 38 C)?: No Have you tested positive for COVID-19?: No Exposed to someone with COVID-19 in past 14 days?: No Do you have a sore throat?: No Do you have a cough?: No Do you have any weakness?: No Do you have any diarrhea?: No Are you experiencing any unusual bleeding?: No Do you have any muscle aches/pain?: No Do you have any abdominal pain?: No Are you experiencing loss of taste or smell?: No Other Medical History Have you received the Flu Vaccine for this season: No Have you received the Pneumonia Vaccine: Yes Review of Systems Review of Systems Review of systems (narrative): Negative *Cardiovascular Comments: Negative *Gastrointestinal Comments: Negative *Genitourinary Comments: Negative *Musculoskeletal Comments: Negative *Neurologic Comments: Negative Meds Home Medications and Allergies Home Medications ?Medication ?Instructions ?Recorded ?Confirmed ?Type aspirin 81 mg capsule 81 mg PO DAILY heart health 03/20/22 03/12/25 History atorvastatin 80 mg tablet 80 mg PO DAILY Cholesterol 03/20/22 03/12/25 History clopidogrel 75 mg tablet 75 mg PO DAILY [employer] 03/20/22 03/12/25 History fenofibrate nanocrystallized 145 145 mg PO DAILY Cholesterol 03/20/22 03/12/25 History mg tablet insulin aspar prot-insulin aspart 55 unit SQ BID Diabetes 03/20/22 03/12/25 History 100 unit/mL (70-30) subcutaneous pen (Novolog Mix 70-30FlexPen U-100) isosorbide mononitrate 30 mg 30 mg PO DAILY Hypertension 03/20/22 03/12/25 History tablet,extended release 24 hr dapagliflozin propanediol 10 mg 10 mg PO DAILY 02/22/24 03/12/25 History tablet (Farxiga) levothyroxine 25 mcg capsule 25 mcg PO DAILY 02/22/24 03/12/25 History vit C 250 mg-vit E 90 mg-zinc 40 2 tab PO DAILY 02/22/24 03/12/25 History mg-copper 1 my-neywnu-nclylq capsule (PreserVision AREDS-2) ferric maltol 30 mg capsule 30 mg PO BID #60 caps 12/19/24 03/12/25 Rx (Accrufer) itjnwe-jtakuwvj-xthwsh(pork)24,000-76,000-120,000 1 cap PO 6XD pancreas #90 caps 01/23/25 03/12/25 Rx unit capsule,del rel (Creon) amlodipine 5 mg tablet 10 mg PO DAILY Hypertension 02/13/25 03/12/25 History chlorthalidone 25 mg tablet 25 mg PO DAILY 02/13/25 03/12/25 History pantoprazole 40 mg tablet,delayed 40 mg PO DAILY 02/13/25 03/12/25 History release polyethylene glycol 3350 17 17 g PO DAILY 02/13/25 03/12/25 History gram/dose oral powder (Miralax) psyllium husk 6 gram/6 gram oral 1 tbsp PO DAILY 02/13/25 03/12/25 History powder (Konsyl Sugar-Free) sodium bicarbonate 650 mg tablet 650 mg PO TID 02/13/25 03/12/25 History triamcinolone acetonide 55 mcg 2 spray intranasal DAILY 02/13/25 03/12/25 History nasal spray aerosol (Nasacort) hydrocodone 10 mg-acetaminophen 1 tab PO Q8H PRN Pain 03/12/25 03/12/25 History 325 mg tablet New Prescriptions to Start Prescriptions: Allergies Allergy/AdvReac Type Severity Reaction Status Date / Time niacin (From [facility] Allergy Flushing Verified 03/12/25 11:11 Extended-Release) Exam Data for Last 24 hours I & O for Last 24 hours: Intake & Output 03/05/25 03/06/25 03/07/25 03/08/25 23:59 23:59 23:59 23:59 Weight 239 lb *Routine HEENT Exam Head: Present normocephalic Eye: Present EOMI and PERRL ENT: Present mucous membranes moist *Routine Neck Exam Neck: Present supple *Routine Respiratory Exam Respiratory: Present CTA bilaterally *Routine Cardiovascular Exam Cardiovascular: Present RRR *Routine Abdominal Exam Abdominal: Present soft and normoactive bowel sounds; Absent tenderness *Routine Rectal Exam Rectal:: deferred *Routine Genitalia Exam Genitalia:: deferred *Routine Extremities Exam Extremities: Absent cyanosis, clubbing or edema *Routine Skin Exam Skin: Present warm; Absent rash *Routine Neurological Exam Neurological: Present alert and oriented X3 Assessment and Plan *Assessment and plan (1) Regurgitation of food: Status: Acute Category: Medical Code(s): R11.10 - Vomiting, unspecified (2) Esophageal stricture: Status: Acute Category: Medical Code(s): K22.2 - Esophageal obstruction (3) Achalasia: Status: Acute Category: Medical Code(s): K22.0 - Achalasia of cardia (4) GERD (gastroesophageal reflux disease): Status: Acute Category: Medical Code(s): K21.9 - Gastro-esophageal reflux disease without esophagitis (5) History of aspiration pneumonia: Status: Acute Category: Medical Code(s): Z87.01 - Personal history of pneumonia (recurrent) Plan A/P: 1. Dysphagia with regurgitation of food and aspiration with pneumonia is the preprocedural diagnosis. The patient has a known history of an esophageal stricture and achalasia. The patient will be anesthetized/sedated using MAC sedation. The patient has been seen and examined. Cardiac and lung assessment prior to the examination is stable. Proceed with planned diagnostic EGD.
--- NOTE | 2025-03-12 07:07 | HMH.PROCNOTE ---
[facility] Procedure Note Date: 03/12/25 Time: 12:30 Procedure Note:: Upper Endoscopy Procedure Report: Esophagogastroduodenoscopy with cold biopsies and TTS balloon dilation Endoscopost: Josue Haskins II, MD Referring Physician: Deonte Latham MD Date of Procedure: March 12, 2025 Equipment: Olympus GIF-1100 standard upper endoscope Sedation: MAC sedation Indications: Mr. Valadez is an 79-year-old gentleman who is here for diagnostic EGD. 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 He also has a prior history of achalasia but this was fully treated and his endoscopic findings are not consistent with achalasia but rather with tight lower esophageal fibrotic stricture. However, he has responded to Botox injection and esophageal dilation and his last EGD in February 2024 showed a 5 mm diameter distal esophageal chronic stricture and this was dilated up to 18 mm. Botox was injected into the LES. The patient does state that he had more durable improvement of his dysphagia after this dilation. I did indicate that the Botox can eventually lead to some submucosal fibrosis and scar tissue and that I did not feel that that was going to be a viable treatment. The patient also has had some obstipation and takes of MiraLAX plus Konsyl fairly routinely. He states that his bowel function is greatly improved. He also takes Creon digestive enzyme and feels like this has helped with his gassiness and bloating. He also takes pantoprazole and prokinetic domperidone. He recently has been having recurrence of the dysphagia and notes regurgitation of content especially in the evenings. Prior to his last EGD with dilation, he was experiencing aspiration and had been hospitalized with aspiration pneumonia. He has not had that since his EGD last year. He is concerned about the possibility of recurrent aspiration because of the food regurgitation.. The examination is deemed medically necessary for diagnostic EGD. Procedure: Prior to the procedure, a history and physical exam was performed, and patient's medications and allergies were reviewed. The risks, benefits and alternatives of the sedation and procedure were discussed with the patient. All questions were answered and informed consent was obtained. The patient was brought to the procedure room. Patient identification and proposed procedure were verified by the physician and the nurse. The patient was placed in a left lateral decubitus position and the scope was passed under direct vision. Throughout the procedure, the patient's blood pressure, pulse, and oxygen saturations were monitored continuously. The upper GI endoscopy was accomplished without difficulty. The patient tolerated the procedure well. Findings: The scope was passed directly into the upper esophagus and advanced to the third portion of the duodenum. The post bulbar duodenum and duodenal bulb were normal with normal mucosa and conniventes. 2 cold biopsies were taken from the second portion of the duodenum for the disaccharidase assay. The scope was withdrawn through a normal duodenal bulb and pylorus into the stomach. There was some bile reflux with linear reactive gastropathy of the antrum. The fundus of the stomach was normal and there was no hiatal hernia. The scope was then withdrawn into the esophagus. There was no evidence of reflux esophagitis or Monroy's. There was a tight fibrotic distal esophageal stricture and this was gently dilated up to 18 mm (54 Welsh) with a TTS hydrostatic balloon. The entire esophagus was dilated to 18 mm. The remainder of the esophageal mucosa was normal. Impression: 1. Distal esophageal fibrotic stricture (original diameter 6 to 7 mm and dilated to 18 mm) Plan: I will follow-up the disaccharidase assay and discuss findings with the patient and family.
[2025-03-12 11:08] VITALS: BP 160/87; PULSE 92; RESP 18; TEMP 36.1; O2SAT 98
[2025-03-12 11:23] LABS: POC Glucose,Bedside 105 gm/dL (70-110)
[2025-03-12] MEDS: LACTATED RINGERS 1000ML 1,000 ML 50 ML IV (11:36)
--- NOTE | 2025-03-12 11:43 | EXP.ANES.CKL ---
[facility] Disclaimer: The information contained in this section may have been updated after the patient was seen, as this information can be updated by other users. Medical History Stroke Eczema Pneumonia Degenerative disc disease Appendicitis Diabetes mellitus, type 2 History of cataract Cervical spine disease Cholecystectomy planned Hyperlipidemia Hypertension Diabetes CVA (cerebral vascular accident) Surgical History History of carpal tunnel surgery Hx of cataract surgery H/O rotator cuff surgery Previous back surgery H/O neck surgery History of appendectomy Family History Other Family history of hypertension Family history of myocardial infarction Stroke Social History Smoking Status: Former smoker alcohol intake: never substance use type: denies use current occupational status: retired Travel in the last 8 weeks?: None Have you lived/traveled outside US in past 30 days?: No Contact w/someone who lives/traveled outside US past 30 days?: No Exposure to someone with infectious disease in past 14 days?: No Do you have a fever (greater than 100.4 F or 38 C)?: No Have you tested positive for COVID-19?: No Exposed to someone with COVID-19 in past 14 days?: No Do you have a sore throat?: No Do you have a cough?: No Do you have any weakness?: No Do you have any diarrhea?: No Are you experiencing any unusual bleeding?: No Do you have any muscle aches/pain?: No Do you have any abdominal pain?: No Are you experiencing loss of taste or smell?: No [facility] Anesthesia Checklist Patient Identification Patient Identification: Arm Band and Verbal (Name & ) Structural Data Admitted From: Home Planned Operative Procedure/s: EGD Consent for Planned Operative Procedure(s) Verified: Yes Verified Documents: Surgical Consent and History and Physical NPO Status Verified Time NPO: 00:00 Additional verifications Anesthesia Reactions: No Airway Assessment Mallampati Score:: Class III Dentition: Edentulous Neurological Assessment Level of Consciousness: Awake, Alert and Appropriate Hx Seizures: No Numbness or tingling in extremities: No Anesthesia Plan Anesthesia Risk discussed: Yes Anesthesia Plan: Verified ASA Class: III Anesthesia Type: MAC
[2025-03-12 12:35] VITALS: BP 157/80; PULSE 89; RESP 18; TEMP 36.4; O2SAT 97
[2025-03-12 12:50] VITALS: BP 175/92; PULSE 81; RESP 16; TEMP 36.4; O2SAT 97
[2025-03-12 13:05] VITALS: BP 156/76; PULSE 84; RESP 16; TEMP 36.4; O2SAT 98
[2025-03-16 12:12] LABS: Interpretation Notes (.); Lactase 24.23 (>/= 14.0); Maltase 143.36 (>/= 110.0); Palatinase 9.28 (>/= 8.5); Reference Notes (.); Sucrase 22.69 (>/= 25.0)
== END 2025-03-12 13:05 | disposition home or self-care (01) ==
PROVIDERS: PCP Internal Medicine; Visit Provider Internal Medicine Gastroenterology
PROC: 0DJ08ZZ Inspection of Upper Intestinal Tract, Via Natural or Artificial Opening Endoscopic (ICD-10-PCS; CPT 43239; principal; 2025-03-12 12:30)
DX: K22.2 Esophageal obstruction (principal); K22.0 Achalasia of cardia; K31.89 Other diseases of stomach and duodenum; K21.9 Gastro-esophageal reflux disease without esophagitis; I10 Essential (primary) hypertension; E78.5 Hyperlipidemia, unspecified; Z87.01 Personal history of pneumonia (recurrent); Z87.19 Personal history of other diseases of the digestive system; Z87.891 Personal history of nicotine dependence; Z86.73 Personal history of transient ischemic attack (TIA), and cerebral infarction without residual deficits; Z79.82 Long term (current) use of aspirin; Z79.4 Long term (current) use of insulin; Z79.84 Long term (current) use of oral hypoglycemic drugs
CPT/HCPCS: 43239; 43249; 82657; 82962; C1726; J2003; J2704; J7120